=== PATIENT | male | born 1990 | race Caucasian/White ===

== ENCOUNTER 2016-08-22 22:31 | Emergency (ER) | payer SELFPAY ==
[2016-08-22 22:44] VITALS: BP 128/74; RESP 16; TEMP 97.8; O2SAT 100
--- NOTE | 2016-08-22 23:27 | ED PDOC ---
HPI: SOB/CHF/COPD Time Seen by Provider: 08/22/16 22:35 Chief Complaint (Nursing): Shortness Of Breath Chief Complaint (Provider): Chest pain with difficuty breathing History Per: Patient History/Exam Limitations: no limitations Onset/Duration Of Symptoms: Hrs (x1) Current Symptoms Are (Timing): Still Present (Difficulty breathing) Additional History Per: Patient Additional Complaint(s): Lance Carvalho is a 25 year old male with no pertinent past medical history who presents to the ED with a chief complaint of intermittent chest pain associated with SOB, but denies any other associated symptoms. Patient reports he had difficulty breathing while simultaneously having chest pain on the left side onset x1 hour ago, and that the chest pain is now gone but he is still having difficulty breathing. Past Medical History Reviewed: Historical Data, Nursing Documentation, Vital Signs Vital Signs: Last Vital Signs Temp 97.8 F 08/22/16 22:43 Pulse 79 08/23/16 00:16 Resp 16 08/22/16 22:43 BP 128/74 08/22/16 22:43 Pulse Ox 100 08/23/16 00:16 - Medical History PMH: No Chronic Diseases - Surgical History Surgical History: No Surg Hx - Family History Family History: States: Unknown Family Hx - Social History Current smoker - smoking cessation education provided: No Ex-Smoker (has not smoked in the last 12 months): No Alcohol: None Drugs: Denies - Immunization History Hx Tetanus Toxoid Vaccination: No Hx Influenza Vaccination: No Hx Pneumococcal Vaccination: No - Home Medications Home Medications: Ambulatory Orders Medication Instructions Recorded Prednisone 2 tab PO DAILY #10 tab 05/24/13 - Allergies Allergies/Adverse Reactions: Allergies Allergy/AdvReac Type Severity Reaction Status Date / Time Penicillins Allergy Verified 08/22/16 23:03 Wells Criteria for PE - Wells Criteria for Pulmonary Embolism Clinical Signs and Symptoms of DVT: No P.E is #1 Diagnosis, or Equally Likely: No Heart Rate >100: No Immobilization at least 3 days;Surgery previous 4 weeks: No Previous, objectively diagnosed PE or DVT: No Hemoptysis: No Malignancy w/treatment within 6 months, or palliative: No Total Score: 0 Review of Systems ROS Statement: Except As Marked, All Systems Reviewed And Found Negative Cardiovascular: Positive for: Chest Pain (Left side) Respiratory: Positive for: Shortness of Breath (Difficulty breathing) Physical Exam - Reviewed Nursing Documentation Reviewed: Yes Vital Signs Reviewed: Yes - Physical Exam Appears: Positive for: Well, Non-toxic, No Acute Distress Head Exam: Positive for: ATRAUMATIC, NORMAL INSPECTION, NORMOCEPHALIC Skin: Positive for: Normal Color, Warm, Dry Eye Exam: Positive for: Normal appearance, EOMI, PERRL ENT: Positive for: Normal ENT Inspection Neck: Positive for: Normal, Painless ROM, Supple Cardiovascular/Chest: Positive for: Regular Rate, Rhythm, Chest Non Tender. Negative for: Murmur, Tachycardia Respiratory: Positive for: Normal Breath Sounds. Negative for: Wheezing, Respiratory Distress Gastrointestinal/Abdominal: Positive for: Normal Exam, Bowel Sounds, Soft. Negative for: Tenderness Back: Positive for: Normal Inspection Rectal: Positive for: Deferred Extremity: Positive for: Normal ROM Lymphatic: Positive for: Deferred Neurologic/Psych: Positive for: Alert, Oriented - ECG ECG: Positive for: Interpreted By Me, Viewed By Me ECG Rhythm: Positive for: Normal QRS, Normal ST Segment, Sinus Rhythm (Normal). Negative for: Sinus Tachycardia, ST/T Changes Rate: 79 O2 Sat by Pulse Oximetry: 100 (RA) Pulse Ox Interpretation: Normal - Radiology X-Ray: Interpreted by Me, Viewed By Me X-Ray Interpretation: No Acute Disease Medical Decision Making Medical Decision Makin: Initial Impression: Chest pain with differentials of panic attack and Pneumothorax. Less likely ACS or PE Initial Plan: * EKG * EKG-ED Ednurtx * Chest two views * Re-Eval Scribe Attestation: Documented by Elissa Lozano acting as a scribe for Michele Cortez MD. Provider Scribe Attestation: All medical record entries made by the~Paulettewere at my direction and personally dictated by me. I have reviewed the chart and agree that the record accurately reflects my personal performance of the history, physical exam, medical decision making, and the department course for this patient. I have also personally directed, reviewed, and agree with the discharge instructions and disposition. Disposition - Clinical Impression Clinical Impression: Chest pain - Patient ED Disposition Is Patient to be Admitted: No Doctor Will See Patient In The: Office Counseled Patient/Family Regarding: Studies Performed, Diagnosis, Need For Followup - Disposition Referrals: [facility] [Outside] Disposition: Routine/Home Disposition Time: 00:16 Condition: GOOD Additional Instructions: Follow up with your PCP in 2-3 days. Instructions: Chest Pain (ED) MOI Risk Score for UA/NSTEMI - MOI Risk Score Age > 64: NO 3 or more CAD Risk Factors: NO Known CAD (Stenosis greater than 50%): NO Aspirin use in past 7 days: NO Severe Angina: NO EKG ST changes greater than 0.5mm: NO Positive Cardiac Marker: NO MOI Score: 0 % risk at 14 days of: all cause mortality, new or recurrent MO, or severe recurrent ischemia requiring urgen revascularization: 5%
[2016-08-22 23:30] VITALS: PULSE 79
--- NOTE | 2016-08-23 10:02 | CARD ---
APPROVED REPORT EKG Measurement Heart [id number] [place] 162P49 [id number] <Conclusion> Normal sinus rhythm Normal ECG
--- NOTE | 2016-08-23 10:10 | RAD ---
HISTORY: chest pain COMPARISON: No prior. TECHNIQUE: Chest PA and lateral FINDINGS: LUNGS: No active pulmonary disease. PLEURA: No significant pleural effusion identified. No pneumothorax apparent. CARDIOVASCULAR: Normal. OSSEOUS STRUCTURES: No significant abnormalities. VISUALIZED UPPER ABDOMEN: Normal. OTHER FINDINGS: None. IMPRESSION: No active disease.
== END 2016-08-23 00:34 | disposition home or self-care (01) ==
LOC: H.ER 22:31
DX: R07.9 Chest pain, unspecified (principal)

== ENCOUNTER 2016-08-29 14:50 | Emergency (ER) | payer MEDICAID ==
[2016-08-29 15:00] VITALS: BP 125/72; PULSE 86; RESP 18; O2SAT 99
--- NOTE | 2016-08-29 15:10 | ED PDOC ---
HPI: General Adult Time Seen by Provider: 08/29/16 15:09 Chief Complaint (Nursing): Cough, Cold, Congestion Chief Complaint (Provider): congestion History Per: Patient Additional Complaint(s): Patient presents to emergency department with shortness of breath and chest pain that started earlier today. Patient admits to drinking alcohol last night and also states that he smoked a cigarette. He is not sure if this has caused his current symptoms or if the symptoms are related to anxiety or panic attack. Patient has had episodes of chest pain and shortness of breath like this in the past. Patient denies any use of any other drugs. He denies any fever or chills and denies any recent coughing or recent travel. Past Medical History Reviewed: Historical Data, Nursing Documentation, Vital Signs Vital Signs: Last Vital Signs Temp Pulse 86 08/29/16 14:57 Resp 18 08/29/16 14:57 BP 125/72 08/29/16 14:57 Pulse Ox 99 08/29/16 18:28 - Medical History PMH: No Chronic Diseases - Surgical History Surgical History: No Surg Hx - Family History Family History: States: No Known Family Hx - Living Arrangements Living Arrangements: With Family - Social History Current smoker - smoking cessation education provided: Yes Ex-Smoker (has not smoked in the last 12 months): Yes (quit 1 year ago) Alcohol: Social Drugs: Denies - Home Medications Home Medications: Ambulatory Orders Medication Instructions Recorded Prednisone 2 tab PO DAILY #10 tab 05/24/13 Albuterol HFA [Ventolin HFA 90 1 puff IH ASDIR #1 unit 08/29/16 mcg/actuation (8 g)] - Allergies Allergies/Adverse Reactions: Allergies Allergy/AdvReac Type Severity Reaction Status Date / Time Penicillins Allergy Verified 08/22/16 23:03 Review of Systems ROS Statement: Except As Marked, All Systems Reviewed And Found Negative Constitutional: Negative for: Fever Cardiovascular: Positive for: Chest Pain. Negative for: Palpitations, Edema, Light Headedness Respiratory: Positive for: Shortness of Breath. Negative for: Cough, SOB with Exertion, Wheezing Gastrointestinal: Negative for: Nausea, Vomiting, Abdominal Pain Neurological: Negative for: Headache, Dizziness Physical Exam - Reviewed Nursing Documentation Reviewed: Yes Vital Signs Reviewed: Yes - Physical Exam Appears: Positive for: Well, Non-toxic, No Acute Distress Skin: Negative for: Rash Eye Exam: Positive for: Normal appearance, EOMI, PERRL Neck: Positive for: Painless ROM Cardiovascular/Chest: Positive for: Regular Rate, Rhythm Respiratory: Positive for: Normal Breath Sounds. Negative for: Wheezing, Respiratory Distress Gastrointestinal/Abdominal: Positive for: Normal Exam, Soft. Negative for: Tenderness Back: Positive for: Normal Inspection. Negative for: L CVA Tenderness, R CVA Tenderness Extremity: Positive for: Normal ROM Neurologic/Psych: Positive for: Alert, Oriented - Laboratory Results Result Diagrams: 08/29/16 16:25 08/29/16 16:25 - ECG O2 Sat by Pulse Oximetry: 99 Pulse Ox Interpretation: Normal - Other Rad bedside chest X-Ray: Interpreted by Me, Viewed By Me X-Ray Interpretation: no acute finding Medical Decision Making Medical Decision Makin25 year old with chest pain and SOB Plan: Labs EKG CXR Duoneb x 1 IVF IV zofran UDS positive for cocaine. Patient was counseled regarding dangers of substance abuse. Patient feels better after duoneb. Nausea resolved, patient tolerated food tray in ED. Will d/c with rx albuterol. Patient was referred to clinic for follow up. Disposition - Clinical Impression Clinical Impression: Substance abuse, Chest pain, Shortness of breath - Patient ED Disposition Is Patient to be Admitted: No Counseled Patient/Family Regarding: Studies Performed, Diagnosis, Need For Followup, Rx Given - Disposition Referrals: [facility] [Outside] Disposition: Routine/Home Disposition Time: 17:55 Condition: STABLE Additional Instructions: Take rx meds as directed. Follow up with clinic. Prescriptions: Albuterol HFA [Ventolin HFA 90 mcg/actuation (8 g)] 1 puff IH ASDIR #1 unit Instructions: Chest Pain (ED), Polysubstance Abuse (ED), Dyspnea (ED) Results - Lab Results Lab Results: 08/29/16 08/29/16 08/29/16 16:35 16:25 16:25 WBC 10.5 RBC 5.16 Hgb 15.2 Hct 44.8 MCV 86.7 MCH 29.4 MCHC 33.9 RDW 13.0 Plt Count 250 MPV 10.4 Neut % (Auto) 74.1 Lymph % (Auto) 17.4 L [place] % (Auto) 4.9 Eos % (Auto) 2.9 Baso % (Auto) 0.7 Neut # 7.7 H Lymph # 1.8 [place] # 0.5 Eos # 0.3 Baso # 0.1 D-Dimer, Quantitative 0.19 Sodium Potassium Chloride Carbon Dioxide Anion Gap BUN Creatinine Est GFR ( Amer) Est GFR (Non-Af Amer) Random Glucose Calcium Total Bilirubin AST ALT Alkaline Phosphatase Troponin I Total Protein Albumin Globulin Albumin/Globulin Ratio Urine Opiates Screen Negative Urine Methadone Screen Negative Ur Barbiturates Screen Negative Ur Phencyclidine Scrn Negative Ur Amphetamines Screen Negative U Benzodiazepines Scrn Negative U Oth Cocaine Metabols Positive H U Cannabinoids Screen Negative Alcohol, Quantitative 08/29/16 16:25 WBC RBC Hgb Hct MCV MCH MCHC RDW Plt Count MPV Neut % (Auto) Lymph % (Auto) [place] % (Auto) Eos % (Auto) Baso % (Auto) Neut # Lymph # [place] # Eos # Baso # D-Dimer, Quantitative Sodium 142 Potassium 4.2 Chloride 104 Carbon Dioxide 23 Anion Gap 19 BUN 10 Creatinine 1.0 Est GFR ( Amer) > 60 Est GFR (Non-Af Amer) > 60 Random Glucose 92 Calcium 9.8 Total Bilirubin 0.9 AST 34 ALT 47 Alkaline Phosphatase 69 Troponin I < 0.0120 Total Protein 8.7 H Albumin 5.0 Globulin 3.8 Albumin/Globulin Ratio 1.3 Urine Opiates Screen Urine Methadone Screen Ur Barbiturates Screen Ur Phencyclidine Scrn Ur Amphetamines Screen U Benzodiazepines Scrn U Oth Cocaine Metabols U Cannabinoids Screen Alcohol, Quantitative < 10
[2016-08-29] MEDS ORDERED: Albuterol-Ipratrop 3 mg / 0.5 (3 ml) UD INH STA (15:48)
[2016-08-29] MEDS ORDERED: Sodium Chloride 0.9% 1,000 ML IV STA (15:49)
[2016-08-29] MEDS ORDERED: Albuterol-Ipratrop 3 mg / 0.5 (3 ml) UD ONE (15:58)
[2016-08-29 16:37] LABS: BASO # 0.1 K/uL (0.0-0.2); BASO % 0.7 % (0.0-2.0); EOS # 0.3 K/uL (0.0-0.7); EOS % 2.9 % (0.0-4.0); HEMATOCRIT 44.8 % (35.0-51.0); LYMPH # 1.8 K/uL (1.0-4.3); LYMPH % 17.4 % (20.0-40.0); MEAN CELL VOLUME 86.7 fl (80.0-94.0); MEAN CORPUSCULAR HEMOGLOBIN 29.4 pg (27.0-31.0); MEAN CORPUSCULAR HGB CONC 33.9 g/dL (33.0-37.0); MEAN PLATELET VOLUME 10.4 fl (7.2-11.7); MONO # 0.5 K/uL (0.0-0.8); MONO % 4.9 % (0.0-10.0); NEUT # 7.7 K/uL (1.8-7.0); NEUT % 74.1 % (50.0-75.0); NRBC % 0.1 % (0.0-0.0); WHITE BLOOD COUNT 10.5 K/uL (4.8-10.8)
[2016-08-29 16:47] LABS: ALB/GLOB RATIO 1.3 (1.0-2.1); ALCOHOL SERUM < 10 mg/dl (0-10); ALKALINE PHOSPHATASE 69 U/L (38-126); ALT/SGPT 47 U/L (21-72); AST/SGOT 34 U/L (17-59); BILIRUBIN,TOTAL 0.9 mg/dl (0.2-1.3); BLOOD UREA NITROGEN 10 mg/dl (9-20); CALCIUM 9.8 mg/dL (8.4-10.2); CARBON DIOXIDE 23 mmol/L (22-30); CHLORIDE 104 mmol/L (98-107); GFR AFRICAN-AMERICAN > 60; GLUCOSE,RANDOM 92 mg/dL (75-110); POTASSIUM 4.2 MMOL/L (3.6-5.0); SODIUM 142 mmol/l (132-148); TOTAL PROTEIN 8.7 G/DL (6.3-8.2)
--- NOTE | 2016-08-30 08:33 | RAD ---
HISTORY: shortness of breath COMPARISON: No prior. FINDINGS: LUNGS: No active pulmonary disease. PLEURA: No significant pleural effusion identified, no pneumothorax apparent. CARDIOVASCULAR: Normal. OSSEOUS STRUCTURES: No significant abnormalities. VISUALIZED UPPER ABDOMEN: Normal. OTHER FINDINGS: None. IMPRESSION: No active disease.
--- NOTE | 2016-08-31 08:59 | CARD ---
APPROVED REPORT EKG Measurement Heart [id number] [place] 160P48 [id number] <Conclusion> Normal sinus rhythm Normal ECG
== END 2016-08-29 18:25 | disposition home or self-care (01) ==
LOC: H.ER 14:50
DX: R07.9 Chest pain, unspecified (principal); R06.00 Dyspnea, unspecified; F19.10 Other psychoactive substance abuse, uncomplicated; Z87.891 Personal history of nicotine dependence; Z88.0 Allergy status to penicillin
CPT/HCPCS: 71010; 80053; 84484; 85025; 85378; 93005; 94640; 96374; 99281; G0480; J2405; J7040

== ENCOUNTER 2016-10-26 21:50 | Emergency (ER) | payer SELFPAY ==
[2016-10-26 22:52] VITALS: BP 127/74; RESP 18; TEMP 98; O2SAT 100
[2016-10-26] MEDS ORDERED: Lidocaine 1% Inj (20ml) IJ ONE (23:41)
--- NOTE | 2016-10-26 23:49 | ED PDOC ---
HPI: General Adult Time Seen by Provider: 10/26/16 23:03 Chief Complaint (Nursing): Lower Extremity Problem/Injury History Per: Patient Additional Complaint(s): Pt. states for the past weeks he's been having atraumatic L great toe pain. Reports a hx of frequent ingrown toenails. Denies fever, discharge, trauma. Also reports 30 minutes [employer] he developed a "twitch" in the middle of his chest which resolved while waiting in the ED waiting room. Reports that he's been getting this for the past 5 months intermittently. Currently without any chest pain while in ED room. Denies palpitations, SOB, chest trauma, fever, DARNELL, hx of CAD. Past Medical History Reviewed: Historical Data, Nursing Documentation, Vital Signs Vital Signs: Last Vital Signs Temp 98.0 F 10/26/16 22:48 Pulse 87 10/26/16 23:57 Resp 18 10/26/16 22:48 BP 127/74 10/26/16 22:48 Pulse Ox 100 10/26/16 23:57 - Family History Family History: States: CAD (grandfather of CAD in his 60s) - Social History Current smoker - smoking cessation education provided: No Ex-Smoker (has not smoked in the last 12 months): No Drugs: Denies - Immunization History Hx Tetanus Toxoid Vaccination: No Hx Influenza Vaccination: No Hx Pneumococcal Vaccination: No - Home Medications Home Medications: Ambulatory Orders Medication Instructions Recorded Prednisone 2 tab PO DAILY #10 tab 05/24/13 Albuterol HFA [Ventolin HFA 90 1 puff IH ASDIR #1 unit 08/29/16 mcg/actuation (8 g)] - Allergies Allergies/Adverse Reactions: Allergies Allergy/AdvReac Type Severity Reaction Status Date / Time Penicillins Allergy Verified 08/22/16 23:03 Review of Systems ROS Statement: Except As Marked, All Systems Reviewed And Found Negative Cardiovascular: Positive for: Chest Pain Physical Exam - Physical Exam Appears: Positive for: Well, Non-toxic, No Acute Distress Skin: Positive for: Normal Color, Warm. Negative for: Rash Eye Exam: Positive for: EOMI, Normal appearance, PERRL Neck: Positive for: Normal, Painless ROM Cardiovascular/Chest: Positive for: Regular Rate, Rhythm Respiratory: Positive for: Normal Breath Sounds. Negative for: Decreased Breath Sounds, Accessory Muscle Use, Crackles, Rales, Rhonchi, Wheezing, Respiratory Distress Pulses-Dorsalis Pedis (L): 2+ Extremity: Positive for: Other (L great toe with mild tendereness and fluctuance on lateral portion with nail deformity). Negative for: Calf Tenderness (b/l) Neurologic/Psych: Positive for: Alert, Oriented - ECG ECG: Positive for: Interpreted By Me ECG Rhythm: Positive for: Sinus Rhythm. Negative for: ST/T Changes Rate: 87 O2 Sat by Pulse Oximetry: 100 - Progress ED Course And Treament: Previous records reviewed and indicate pt. has had 2 previous episodes for chest pain back in August 2016. Last visit shows that pt. had cardiac work up and was subsequently discharged with negative work up which included CXR, d-dimer, and cardiac enzymes. Pt. states he has not f/u with a PMD as he currently does not have insurance. Pt. educated and encouraged to f/u with [facility] for further evaluation. Informed that since symptoms have been going on for 5 months it is not likely an emergency. Outpt f/u was stressed. Pt. verbalized understanding of necessary outpt f/u but will return to ED if chest pain worsens. [facility], consulted and will come to ED for further evaluation. Disposition - Clinical Impression Clinical Impression: Ingrown toenail, Chest pain - Patient ED Disposition Is Patient to be Admitted: No - Disposition Disposition Time: 00:00 Condition: STABLE
[2016-10-26 23:56] VITALS: PULSE 87
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
[2016-10-27] MEDS ORDERED: Lidocaine 1% Inj (20ml) ONE (00:28)
--- NOTE | 2016-10-27 01:35 | ED PDOC ---
- ECG O2 Sat by Pulse Oximetry: 100 - Progress ED Course And Treament: Case endorsed to short story writer from [facility] pending podiatry eval Patient evaluated by Podiatry resident on-call; procedure performed, foot bandaged. Recommends Clindamycin PO and follow up in 1 week. Disposition - Clinical Impression Clinical Impression: Ingrown toenail, Chest pain - POA Present On Arrival: None - Disposition Referrals: Podiatry Clinic [Outside] Disposition: Routine/Home Disposition Time: 01:34 Condition: STABLE Prescriptions: Clindamycin [Cleocin] 300 mg PO QID #28 cap Instructions: Ingrown Nail (ED), Noncardiac Chest Pain (ED)
--- NOTE | 2016-10-30 13:09 | CARD ---
APPROVED REPORT EKG Measurement Heart [id number] [place] 162P16 [id number] <Conclusion> Normal sinus rhythm Normal ECG
== END 2016-10-27 02:15 | disposition home or self-care (01) ==
LOC: H.ER 21:50
DX: L60.0 Ingrowing nail (principal); Z88.0 Allergy status to penicillin

== ENCOUNTER 2016-12-18 11:03 | Emergency (ER) | payer OTHER ==
[2016-12-18] MEDS ORDERED: Sodium Chloride 0.9% 1,000 ML IV STA (11:26)
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
[2016-12-18 11:34] VITALS: BMI 31.5
[2016-12-18 11:47] LABS: VENOUS BLOOD GAS BASE EXCESS 2.9 mmol/L (0.0-2.0); VENOUS BLOOD GAS PCO2 43 mmHg (40-60); VENOUS BLOOD PH 7.42 (7.32-7.43)
[2016-12-18 11:52] VITALS: BP 108/57; PULSE 69; RESP 19; TEMP 97; O2SAT 100
[2016-12-18 11:53] LABS: BASO # 0.1 K/uL (0.0-0.2); BASO % 0.6 % (0.0-2.0); EOS # 0.2 K/uL (0.0-0.7); HEMATOCRIT 44.1 % (35.0-51.0); LYMPH # 2.1 K/uL (1.0-4.3); LYMPH % 23.1 % (20.0-40.0); MEAN CELL VOLUME 87.4 fl (80.0-94.0); MEAN CORPUSCULAR HEMOGLOBIN 29.3 pg (27.0-31.0); MEAN CORPUSCULAR HGB CONC 33.5 g/dL (33.0-37.0); MEAN PLATELET VOLUME 10.2 fl (7.2-11.7); MONO # 0.5 K/uL (0.0-0.8); MONO % 5.1 % (0.0-10.0); NEUT # 6.4 K/uL (1.8-7.0); NEUT % 69.2 % (50.0-75.0); RED CELL DISTRIBUTION WIDTH 12.9 % (11.5-14.5); WHITE BLOOD COUNT 9.3 K/uL (4.8-10.8)
[2016-12-18 12:14] LABS: ALB/GLOB RATIO 1.2 (1.0-2.1); ALKALINE PHOSPHATASE 59 U/L (38-126); ALT/SGPT 43 U/L (21-72); AST/SGOT 26 U/L (17-59); BILIRUBIN,TOTAL 1.7 mg/dl (0.2-1.3); BLOOD UREA NITROGEN 14 mg/dl (9-20); CALCIUM 9.9 mg/dL (8.4-10.2); CARBON DIOXIDE 24 mmol/L (22-30); CHLORIDE 105 mmol/L (98-107); GFR AFRICAN-AMERICAN > 60; GLUCOSE,RANDOM 90 mg/dL (75-110); POTASSIUM 4.1 MMOL/L (3.6-5.0); SODIUM 140 mmol/l (132-148); TOTAL PROTEIN 8.3 G/DL (6.3-8.2)
--- NOTE | 2016-12-18 12:17 | RAD ---
HISTORY: chest pain x 3 days COMPARISON: Comparison made with chest radiograph 08/29/2016 TECHNIQUE: Chest PA and lateral FINDINGS: LUNGS: No active pulmonary disease. PLEURA: No significant pleural effusion identified. No pneumothorax apparent. CARDIOVASCULAR: Normal. OSSEOUS STRUCTURES: No significant abnormalities. VISUALIZED UPPER ABDOMEN: Normal. OTHER FINDINGS: None. IMPRESSION: No active disease.
--- NOTE | 2016-12-19 21:14 | CARD ---
APPROVED REPORT EKG Measurement Heart [id number] <Conclusion> Normal sinus rhythm Normal ECG
== END 2016-12-18 13:19 | disposition home or self-care (01) ==
LOC: H.ER 11:03 → SUPCPDRO 11:03 → H.ER 13:19
DX: K21.9 Gastro-esophageal reflux disease without esophagitis (principal); F10.129 Alcohol abuse with intoxication, unspecified; Z88.0 Allergy status to penicillin
CPT/HCPCS: 71020; 80053; 82553; 82803; 83615; 84484; 85025; 85378; 87040; 93005; 99284; J7040

== ENCOUNTER 2018-09-10 02:21 | Emergency (ER) | payer MEDICAID, OTHER ==
[2018-09-10 02:21] VITALS: BMI 31.5
[2018-09-10 02:27] VITALS: RESP 16
[2018-09-10] MEDS ORDERED: Ammonia 2% Inhalant ONE (03:32)
[2018-09-10 05:25] VITALS: BP 128/79; PULSE 94; TEMP 98.2; O2SAT 99
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
--- NOTE | 2018-09-10 11:07 | CT ---
Date of service: 09/10/2018 PROCEDURE: CT HEAD WITHOUT CONTRAST. HISTORY: etoh, head injury COMPARISON: None available. TECHNIQUE: Axial computed tomography images were obtained through the head/brain without intravenous contrast. Radiation dose: Total exam DLP = 1015.61 mGy-cm. This CT exam was performed using one or more of the following dose reduction techniques: Automated exposure control, adjustment of the mA and/or kV according to patient size, and/or use of iterative reconstruction technique. FINDINGS: HEMORRHAGE: No intracranial hemorrhage. BRAIN: Normal beltran-white matter differentiation and density are appreciated throughout the cerebrum and cerebellum with the brainstem appearing unremarkable as well. There is no mass effect. There is no suspicious extra-axial fluid collection and the midline brain anatomy appears diffusely unremarkable. VENTRICLES: Unremarkable. No hydrocephalus. CALVARIUM: Normal beltran-white matter differentiation and density are appreciated throughout the cerebrum and cerebellum with the brainstem appearing unremarkable as well. There is no mass effect. There is no suspicious extra-axial fluid collection and the midline brain anatomy appears diffusely unremarkable. PARANASAL SINUSES: Unremarkable as visualized. No significant inflammatory changes. MASTOID AIR CELLS: Unremarkable as visualized. No inflammatory changes. OTHER FINDINGS: None. IMPRESSION: Unremarkable CT of the Head. Concordant preliminary report from [email or web address], 09/10/2018, 4:17 a.m..
== END 2018-09-10 05:34 | disposition home or self-care (01) ==
LOC: H.ER 02:21
DX: F10.129 Alcohol abuse with intoxication, unspecified (principal)
CPT/HCPCS: 70450; 82948; 99283; G0480

== ENCOUNTER 2018-09-12 08:26 | Emergency (ER) | payer OTHER ==
[2018-09-12 08:27] VITALS: BMI 33.0
--- NOTE | 2018-09-12 08:45 | ED PDOC ---
HPI: General Adult Time Seen by Provider: 09/12/18 08:38 Chief Complaint (Nursing): Allergic Reaction Chief Complaint (Provider): Allergic Reaction History Per: Patient History/Exam Limitations: no limitations Onset/Duration Of Symptoms: Hrs Additional Complaint(s): 27 y/o male presents to the ED complaining of allergic reaction that happen this morning. Patient states he was eating blueberries this morning for breakfast which he never had it before. He reports have itchy throat and did not take any medication at home. Patient any other symptoms at this time. PMD: none provided Past Medical History Reviewed: Historical Data, Nursing Documentation, Vital Signs Vital Signs: Last Vital Signs Temp 97.2 F L 09/12/18 08:28 Pulse 69 09/12/18 08:28 Resp 18 09/12/18 08:28 BP 119/73 09/12/18 08:28 Pulse Ox 99 09/12/18 08:28 - Medical History PMH: Denies: Diabetes, Hepatitis, HIV, HTN, Seizures, Sexually Transmitted Disease - Family History Family History: States: Unknown Family Hx, CAD (grandfather of CAD in his 60s) - Social History Current smoker - smoking cessation education provided: No Alcohol: Social - Immunization History Hx Tetanus Toxoid Vaccination: No Hx Influenza Vaccination: No Hx Pneumococcal Vaccination: No - Home Medications Home Medications: Ambulatory Orders Medication Instructions Recorded Prednisone 2 tab PO DAILY #10 tab 05/24/13 Albuterol HFA [Ventolin HFA 90 1 puff IH ASDIR #1 unit 08/29/16 mcg/actuation (8 g)] Clindamycin [Cleocin] 300 mg PO QID #28 cap 10/27/16 Famotidine [Pepcid] 20 mg PO BID #60 tab 12/18/16 DiphenhydrAMINE [Benadryl] 50 mg PO Q8H 3 Days #20 cap 09/12/18 Famotidine [Pepcid] 20 mg PO BID #20 tab 09/12/18 Prednisone 50 mg PO DAILY #4 tab 09/12/18 - Allergies Allergies/Adverse Reactions: Allergies Allergy/AdvReac Type Severity Reaction Status Date / Time Penicillins Allergy Verified 08/22/16 23:03 Review of Systems ROS Statement: Except As Marked, All Systems Reviewed And Found Negative ENT: Positive for: Other (Itchy throat.) Skin: Positive for: Other (Urticaria) Physical Exam - Reviewed Nursing Documentation Reviewed: Yes Vital Signs Reviewed: Yes - Physical Exam Appears: Positive for: Well (Speaking in full sentence.), Non-toxic, No Acute Distress. Negative for: Uncomfortable Head Exam: Positive for: ATRAUMATIC, NORMAL INSPECTION, NORMOCEPHALIC Skin: Positive for: Normal Color (Generalized uticaria), Warm, Dry Eye Exam: Positive for: EOMI, Normal appearance, PERRL ENT: Positive for: Normal ENT Inspection, Pharynx Is (Clear), Other (No drooling. Handling secretion.) Neck: Positive for: Normal, Painless ROM, Supple Cardiovascular/Chest: Positive for: Regular Rate, Rhythm. Negative for: Murmur Respiratory: Positive for: Normal Breath Sounds. Negative for: Wheezing, Respiratory Distress Gastrointestinal/Abdominal: Positive for: Normal Exam, Soft. Negative for: Tenderness Back: Positive for: Normal Inspection. Negative for: L CVA Tenderness, R CVA Tenderness Extremity: Positive for: Normal ROM Neurological/Psych: Positive for: Awake, Alert, Normal Tone, Oriented (x3). Negative for: Motor/Sensory Deficits - ECG O2 Sat by Pulse Oximetry: 99 Medical Decision Making Medical Decision Making: Time:837 Impression: Plan: -Benadryl 50mg PO -Pepcid 40mg PO -Prednisone 50mg PO Scribe Attestation: Documented by Elise Anaya, acting as a scribe for Shelley Bueno. Provider Scribe Attestation: All medical record entries made by the Scribe were at my direction and personally dictated by me. I have reviewed the chart and agree that the record accurately reflects my personal performance of the history, physical exam, medical decision making, and the department course for this patient. I have also personally directed, reviewed, and agree with the discharge instructions and disposition. Disposition - Clinical Impression Clinical Impression: Urticaria - Disposition Referrals: [facility] [Outside] Disposition: Routine/Home Disposition Time: 10:00 Condition: IMPROVED Prescriptions: DiphenhydrAMINE [Benadryl] 50 mg PO Q8H 3 Days #20 cap Famotidine [Pepcid] 20 mg PO BID #20 tab Prednisone 50 mg PO DAILY #4 tab Instructions: Hives Forms: [facility] (Frisian)
[2018-09-12 10:26] VITALS: BP 119/78; PULSE 85; RESP 20; TEMP 97.7
[2018-09-19 08:16] VITALS: O2SAT 99
== END 2018-09-12 10:16 | disposition home or self-care (01) ==
LOC: H.ER 08:26
DX: L50.0 Allergic urticaria (principal); Z82.49 Family history of ischemic heart disease and other diseases of the circulatory system; Z88.0 Allergy status to penicillin